=== PATIENT | female | born 1955 | race Caucasian/White ===

== ENCOUNTER 2022-01-29 22:23 | Observation (INO) ==
[2022-01-29] MEDS ORDERED: Aspirin 81 MG TAB.CHEW PO ONE (23:10)
[2022-01-29] MEDS ORDERED: 0.9 % Sodium Chloride 500 ML IVC ONE (23:10)
[2022-01-29 23:21] LABS: Basophils % 0.2 %; Eosinophils % 0.3 %; Hematocrit 42.8 % (35.3-44.9); Hemoglobin 14.1 g/dL (11.5-15.4); Immature Granulocytes % 0.6 % (0-4); Lymphocytes # 1.5 K/mcL (0.6-4.6); Lymphocytes % 9.6 %; Mean Corpuscular HGB Conc 32.9 g/dL (31.6-35.5); Mean Corpuscular Hemoglobin 31.5 pg (28.0-33.3); Mean Corpuscular Volume 95.7 fL (83.0-100.0); Mean Platelet Volume 10.6 fL (9.4-12.4); Monocytes # 1.8 K/mcL (0.0-1.3); Monocytes % 11.9 %; Neutrophils # 11.7 K/mcL (1.6-8.9); Platelet Count 246 K/mcL (140-400); Red Blood Count 4.47 M/mcL (3.82-4.97); Red Cell Distribution Width 13.3 % (11.5-14.5); Segmented Neutrophils % 77.4 %; White Blood Count 15.2 K/mcL (4.3-11.1)
[2022-01-29 23:28] LABS: INR 1.1; Prothrombin Time 12.6 Seconds (9.4-12.1)
[2022-01-29 23:31] LABS: Activated Partial Thrombo Time 34.4 Seconds (26.0-36.0)
[2022-01-29 23:42] LABS: BUN/Creatinine Ratio 27 (6-26); Blood Urea Nitrogen 18 mg/dL (8-23); Calcium 9.1 mg/dL (8.6-10.3); Carbon Dioxide 28 mEq/L (23-29); Chloride 99 mEq/L (98-107); Glucose 207 mg/dL (70-105); Lipase 11 Units/L (11-82); Osmolality,Calculated 290 (280-300); Potassium 4.1 mEq/L (3.5-5.1); Sodium 136 mEq/L (136-145); Troponin I < 0.03 ng/mL (< 0.04); eGFR For African Americans > 60 (> 60); eGFR For Non-African Americans > 60 (> 60)
[2022-01-30] MEDS ORDERED: Isovue-370 500 ML BOTTLE IVP ONE (00:28)
[2022-01-30] MEDS ORDERED: Naloxone 0.4 MG/ML INJ IVP PRN (03:13)
[2022-01-30] MEDS ORDERED: Acetaminophen 325 MG TABLET PO PRN (03:13)
[2022-01-30 04:41] LABS: Influenza A PCR Negative (Negative); Influenza B PCR Negative (Negative); Resp. Syncytial Virus PCR Negative (Negative)
[2022-01-30 04:43] LABS: SARS-CoV-2 by PCR (In House) Negative (Negative)
[2022-01-30] MEDS ORDERED: Perflutren Lipid Microsphere 1.3 ML in 0.9 % Sodium Chloride 8.7 ML IVP PRN (04:52)
[2022-01-30] MEDS ORDERED: Dextrose Gel 15 GM/37.5 ML TUBE PO PRN ×4 (05:03→12:11)
[2022-01-30] MEDS ORDERED: *HR* Dextrose 50 % in Water (Syg) 50 ML SYRINGE IVP PRN ×2 (05:03→12:11)
[2022-01-30] MEDS ORDERED: D5% in Water 1,000 ML IVC PRN ×2 (05:03→12:11)
[2022-01-30] MEDS: *HR* Heparin 5,000 UNIT/ML VIAL SQ SCH ×3 (06:08→20:32)
[2022-01-30] MEDS: Insulin LISPRO 300 UNITS/3 ML VIAL SUBQ SCH ×6 (08:26→20:09)
[2022-01-30 09:26] LABS: Cholesterol 149 mg/dL (< 200); HDL Cholesterol 49 mg/dL (40-59); LDL Cholesterol,Calculated 74 mg/dL (< 100); Triglycerides 132 mg/dL (< 150)
[2022-01-30 09:27] LABS: Troponin I < 0.03 ng/mL (< 0.04)
[2022-01-30 09:40] LABS: Thyroid Stimulating Hormone 1.104 mcIU/mL (0.340-5.600)
[2022-01-30] MEDS: carBAMazepine 200 MG TABLET PO SCH ×2 (09:40→20:08)
[2022-01-30] MEDS: cloZAPine 100 MG TABLET PO SCH ×2 (09:40→20:08)
[2022-01-30] MEDS: Ipratropium/Albuterol Neb 3 ML IH SCH ×3 (11:18→20:24)
[2022-01-30] MEDS: Budesonide/Formoterol 160/4.5 1 PUFF INH IH SCH ×2 (11:19→20:24)
[2022-01-30 12:07] LABS: Estimated Average Glucose 163 mg/dl; Hemoglobin A1C 7.3 %
[2022-01-30] MEDS: Metoprolol XL (24 HR) Succ 25 MG TAB.ER.24H PO SCH (13:38)
[2022-01-30] MEDS: Aspirin Enteric Coated 81 MG Tablet PO SCH (13:38)
[2022-01-30] MEDS: Chlorhexidine Rinse 15 ML MOUTHWASH MM SCH (20:08)
[2022-01-31 02:41] LABS: Basophils # 0.1 K/mcL (0.0-0.2); Basophils % 0.4 %; Eosinophils # 0.2 K/mcL (0.0-0.6); Eosinophils % 1.9 %; Hematocrit 39.6 % (35.3-44.9); Hemoglobin 13.1 g/dL (11.5-15.4); Immature Granulocytes % 0.6 % (0-4); Lymphocytes # 2.5 K/mcL (0.6-4.6); Lymphocytes % 21.5 %; Mean Corpuscular HGB Conc 33.1 g/dL (31.6-35.5); Mean Corpuscular Hemoglobin 31.6 pg (28.0-33.3); Mean Corpuscular Volume 95.4 fL (83.0-100.0); Mean Platelet Volume 10.8 fL (9.4-12.4); Monocytes # 1.5 K/mcL (0.0-1.3); Monocytes % 13.3 %; Neutrophils # 7.2 K/mcL (1.6-8.9); Platelet Count 242 K/mcL (140-400); Red Blood Count 4.15 M/mcL (3.82-4.97); Red Cell Distribution Width 13.2 % (11.5-14.5); Segmented Neutrophils % 62.3 %; White Blood Count 11.6 K/mcL (4.3-11.1)
[2022-01-31 02:53] LABS: BUN/Creatinine Ratio 24 (6-26); Blood Urea Nitrogen 13 mg/dL (8-23); Calcium 8.2 mg/dL (8.6-10.3); Carbon Dioxide 27 mEq/L (23-29); Chloride 98 mEq/L (98-107); Glucose 165 mg/dL (70-105); Osmolality,Calculated 284 (280-300); Potassium 3.6 mEq/L (3.5-5.1); Sodium 135 mEq/L (136-145); eGFR For African Americans > 60 (> 60); eGFR For Non-African Americans > 60 (> 60)
[2022-01-31] MEDS: Ipratropium/Albuterol Neb 3 ML IH SCH ×2 (04:18→07:37)
[2022-01-31] MEDS: *HR* Heparin 5,000 UNIT/ML VIAL SQ SCH (05:35)
[2022-01-31] MEDS: Budesonide/Formoterol 160/4.5 1 PUFF INH IH SCH (07:37)
[2022-01-31] MEDS: carBAMazepine 200 MG TABLET PO SCH (08:33)
[2022-01-31] MEDS: Aspirin Enteric Coated 81 MG Tablet PO SCH (08:33)
[2022-01-31] MEDS: cloZAPine 100 MG TABLET PO SCH (08:33)
[2022-01-31] MEDS: Metoprolol XL (24 HR) Succ 25 MG TAB.ER.24H PO SCH (08:33)
[2022-01-31] MEDS: Chlorhexidine Rinse 15 ML MOUTHWASH MM SCH (08:35)
[2022-01-31] MEDS: Insulin LISPRO 300 UNITS/3 ML VIAL SUBQ SCH ×2 (08:35→12:04)
[2022-01-31] MEDS: Calcium Gluconate 1gm/50mL 1 GM/50 ML BAG IVPB SCH ×2 (08:37→09:38)
[2022-01-31] MEDS ORDERED: Isosorbide MONOnitrate (24 HR) 30 MG TAB.ER.24H PO SCH (10:00)
[2022-01-31 11:42] VITALS: BP 108/71; PULSE 76; TEMP 97.7; O2SAT 92
== END 2022-01-31 13:13 ==
LOC: 3BNU 22:23 → EMEROOARM 22:23 → SUATTDRO 01-30 03:05 → 3BNU 01-30 03:54
PROVIDERS: ADMIT Internal Medicine; ATTEND Internal Medicine